=== PATIENT | female | born 1980 | race Caucasian/White ===

== ENCOUNTER 2019-09-15 12:06 | Day surgery (SDC) | payer OTHER ==
[2019-09-15] MEDS ORDERED: Glycopyrrolate 0.2 MG/ML 5 ML MDV IV ONE (12:07)
[2019-09-15] MEDS ORDERED: Rocuronium 100 MG/10 ML MDV IV ONE (12:07)
[2019-09-15] MEDS ORDERED: Ondansetron 4 MG/2 ML SDV IVPUSH ONE (12:07)
[2019-09-15] MEDS ORDERED: fentaNYL 100 MCG/2 ML SDV IV ONE (12:07)
[2019-09-15] MEDS ORDERED: Midazolam 1 MG/ML 2 ML SDV IV ONE (12:07)
[2019-09-15] MEDS ORDERED: Neostigmine Methylsulfate 10 MG/10 ML MDV IVPUSH ONE (12:07)
[2019-09-15] MEDS ORDERED: Acetaminophen 1,000 MG/100 ML Infusion Bottle Premix IV ONE (12:07)
[2019-09-15] MEDS ORDERED: ceFAZolin 1 GM Vial IV ONE (12:07)
[2019-09-15] MEDS ORDERED: Succinylcholine 200 MG/10 ML MDV IV ONE (12:07)
[2019-09-15] MEDS ORDERED: Propofol 200 MG/20 ML SDV IV ONE (12:07)
[2019-09-15] MEDS ORDERED: diphenhydrAMINE 50 MG/ML SDV IVPUSH ONE (12:07)
[2019-09-15] MEDS ORDERED: Dexamethasone 4 MG/ML 5 ML MDV IVPUSH ONE (12:07)
[2019-09-15] MEDS ORDERED: Lactated Ringers 1,000 ML IV SCH (12:15)
[2019-09-15] MEDS ORDERED: Sodium Chloride 0.9% 10 ML Syringe FLUSH PRN (12:15)
[2019-09-15] MEDS ORDERED: ceFAZolin 1 GM in Sodium Chloride 0.9% 50 ML IV ONE (12:36)
[2019-09-15] MEDS ORDERED: ceFAZolin 1 GM Vial IVPUSH ONE (12:45)
--- NOTE | 2019-09-15 14:30 | PCM.OPNOTE ---
- General Post-Op/Procedure Note Date of Surgery/Procedure: 09/15/19 Operative Procedure(s): Laparoscopic cholecystectomy Findings: Acutely inflamed gallbladder with hydrops and multiple gallstones including a stone impacted in the cystic duct Liver and other intra abdominal organs appeared normal laparoscopically Pre Op Diagnosis: Acute cholecystitis with cholelithiasis Post-Op Diagnosis: Same Anesthesia Technique: General ET Tube Primary Surgeon: Anurag Curtis Pathology: Gallbladder with stones EBL in mLs: 10 Complications: None Condition: Good
--- NOTE | 2019-09-15 15:17 | HP ---
ADMISSION DATE: 09/15/2019 HISTORY OF PRESENT ILLNESS: This 39-year-old female was feeling well until approximately 5:30 this morning when she awoke with right-sided back pain. This soon became associated with right upper quadrant abdominal pain and nausea. Symptoms were unusual for her and she presented to the outpatient clinic in [place] where she was evaluated. Testing included laboratory studies which were unremarkable including normal liver function tests. She underwent a CT scan of the abdomen which did show multiple gallstones. The patient has not had severe right upper quadrant pain like this in the past. She did notice slight increase in indigestion during a recent vacation, but generally has felt well. PAST MEDICAL AND SURGICAL HISTORY: Shows no previous abdominal surgery. She did have wisdom teeth removal with no anesthetic problems at that time. She also had repair of a foot deformity as an . MEDICATIONS: She does not take any routine prescription medications. ALLERGIES: No known drug allergies. SOCIAL HISTORY: The patient does not smoke. She is and she lives in the [place] area. FAMILY HISTORY: Positive for several members who have had to have cholecystectomy performed. There is no history of any known serious anesthetic complications or bleeding disorders. SYSTEM REVIEW: No recent cough, cold, or sore throat symptoms. She is not experiencing any chest pain or palpitations. No difficulty breathing. No extremity complaints and no other known change in physical symptoms recently. PHYSICAL EXAMINATION: VITAL SIGNS: Her weight is 170 pounds. GENERAL: The patient is an alert adult female. She is currently in no acute distress. HEENT: Head is normocephalic. No scleral icterus. NECK: Supple. No cervical masses. No cervical lymphadenopathy is noted. HEART: Regular without murmur. LUNGS: Clear. Breath sounds are equal. No wheezing is noted. ABDOMEN: Currently soft. There is tenderness to direct palpation in the right upper quadrant. No palpable mass or hepatic or splenic enlargement identified. EXTREMITIES: Show no obvious deformity or edema. NEUROLOGIC: Grossly normal. IMPRESSION: Acute cholecystitis with cholelithiasis. PLAN: Laparoscopic cholecystectomy. INFORMED CONSENT: I have discussed the proposed operative procedure with the patient, reviewed with her indications, options, and risks such as but not limited to bleeding, infection, organ injury, and possible need to convert to a laparotomy. She appears to understand. She agrees to proceed today. /[id number] DA/DELORES KUHN
--- NOTE | 2019-09-15 15:37 | OR ---
DATE OF OPERATION: 09/15/2019 SURGEON: Anurag Curtis MD PREOPERATIVE DIAGNOSIS: Acute cholecystitis with cholelithiasis. POSTOPERATIVE DIAGNOSES: Acute cholecystitis with cholelithiasis and gallbladder hydrops. OPERATION PERFORMED: Laparoscopic cholecystectomy. INDICATIONS FOR SURGERY: This 39-year-old female presented to the clinic this morning with sudden onset of right back and right upper quadrant abdominal pain. Workup identified acute cholecystitis with cholelithiasis and she presents for cholecystectomy. FINDINGS: The patient's gallbladder was acutely inflamed with edema in the adjacent tissues. There was no visible exudate. The gallbladder contained multiple stones including a stone impacted in the cystic duct. The bile within the gallbladder was clear consistent with hydrops. The liver appeared normal as viewed laparoscopically. Lesions in the liver that were identified on the preoperative CT scan were not able to be seen with the laparoscope. The remainder of the intraabdominal and pelvic organs appeared normal as viewed laparoscopically. PROCEDURE IN DETAIL: The patient was taken to the operating room. She was given general endotracheal anesthesia and the abdomen was sterilely prepped and draped. A supraumbilical linear incision was made, and through this, a Veress needle was inserted. Pneumoperitoneum via this needle to a pressure of 15 mmHg was achieved with carbon dioxide. The Veress needle was replaced with a 12 mm trocar into which the 5 mm variable angled laparoscopic camera was inserted. Under direct visualization, 5 mm trocars were placed in the subxiphoid midline and in 2 areas of the right abdomen. All trocar sites were infiltrated with Marcaine prior to incision. Intraabdominal and pelvic inspection was carried out and attention was turned to the gallbladder. Omental adhesions to the undersurface of the gallbladder were carefully taken down and filmy adhesions between the gallbladder and the duodenum were divided sharply with great care being used to avoid injury to the duodenum. As the base of the gallbladder was visualized, careful dissection cleared the tissue in the region of the triangle of Calot. The cystic duct and cystic artery were clearly identified. The cystic artery was exposed, and then doubly clipped and divided and the triangle of Calot was completely cleared. The upper portion of the cystic duct closest to the gallbladder was dilated and dissection down along the cystic duct was carried out until the normal caliber area of cystic duct was identified. The common bile duct was identified and the region around the lower portion of the cystic duct is clearly defined. Careful manipulation was able to milk the cystic duct stone back toward the gallbladder enough so that a clear segment of cystic duct was exposed to allow clip placement. Two clips are placed on the cystic duct just below the cystic duct stone and this was carefully examined and found to create no compression, narrowing, or injury to the common bile duct. Another clip was placed over the cystic duct in the region of the stone and the cystic duct was divided just beneath the cystic duct stone. The remaining attachments of the gallbladder to the liver were carefully divided using the hook cautery device and once it was completely free, the gallbladder was extracted through the umbilical trocar site. At this time, the cystic duct was opened and stones identified. The gallbladder did have to be opened and stones from inside of the gallbladder removed to decompress it enough to allow the gallbladder to be evacuated from the abdominal cavity. There was no spillage of stones or bile intra-abdominally. Careful inspection was carried out of the area of the cystic artery and cystic duct as well as the gallbladder bed. No sign of bleeding was noted. No evidence of complication and again no sign of injury or narrowing of the common bile duct was noted. The trocars were then removed under direct visualization and the pneumoperitoneum was evacuated. The fascia of the umbilical trocar site was closed with a [id number] 0 Vicryl suture. Wounds were irrigated with Betadine and saline solution. Skin incisions were approximated with interrupted 4-0 Vicryl. Benzoin and Steri- Strips were applied, followed by antibiotic ointment and sterile dressings. The patient was awakened, extubated, and then taken from the operating room in satisfactory condition. ESTIMATED BLOOD LOSS: 10 mL. COMPLICATIONS: None. PROGNOSIS: Good. /[id number] DA/DELORES KUHN
== END 2019-09-15 16:35 | disposition home or self-care (01) ==
LOC: FB.SDS 12:06 → FB.MS 15:22 → FB.SDS 16:35
PROVIDERS: ATTEND Surgery
DX: K80.12 Calculus of gallbladder with acute and chronic cholecystitis without obstruction (principal); N20.0 Calculus of kidney
CPT/HCPCS: 47562; 88304; J0131; J0330; J0690; J1100; J1200; J2250; J2405; J2704; J2710; J3010; J3490; J7120